=== PATIENT | female | born 1935 | race Caucasian/White ===

== ENCOUNTER 2016-12-26 19:17 | Emergency (ER) | payer OTHER ==
[~2016-12-26 19:17] MED LIST: LISINOPRIL PO; ULTRAM50 PO; XANAX1 MG PO
== END 2016-12-26 19:46 | disposition home or self-care (01) ==
LOC: ER 19:17
DX: I10 Essential (primary) hypertension (principal); F41.9 Anxiety disorder, unspecified; M54.9 Dorsalgia, unspecified; Z76.0 Encounter for issue of repeat prescription; Z79.899 Other long term (current) drug therapy
CPT/HCPCS: 99282